=== PATIENT | female | born 1995 | race Two or more races ===

== ENCOUNTER 2024-01-19 15:06 | Emergency (ER) | payer MEDICAID, OTHER ==
[~2024-01-19] VITALS: Ht 152.4 cm; Wt 75.0 kg
[2024-01-19] MEDS ORDERED: ACET500T58 PO (16:47)
[2024-01-19] MEDS ORDERED: IBUP-1455 PO (16:47)
[2024-01-19] MEDS: KETOROLAC TROMETH 60MG/2ML VIAL IM ONE (17:45)
[2024-01-19 17:48] VITALS: BP 137/84; PULSE 72; RESP 15; TEMP 97.6; O2SAT 99
== END 2024-01-19 18:17 | disposition home or self-care (01) ==
LOC: ER 15:06
DX: S16.1XXA Strain of muscle, fascia and tendon at neck level, initial encounter (principal); S39.012A Strain of muscle, fascia and tendon of lower back, initial encounter; S46.912A Strain of unspecified muscle, fascia and tendon at shoulder and upper arm level, left arm, initial encounter; V89.2XXA Person injured in unspecified motor-vehicle accident, traffic, initial encounter; Y93.89 Activity, other specified; Y92.89 Other specified places as the place of occurrence of the external cause; Y99.8 Other external cause status
CPT/HCPCS: 72040; 72100; 73030; 96372; 99284; J1885

== ENCOUNTER 2024-05-29 14:47 | Emergency (ER) | payer MEDICAID ==
[~2024-05-29] VITALS: Ht 147.3 cm; Wt 56.3 kg
[~2024-05-29 14:47] MED LIST: ACET500T58 PO; IBUP-1455 PO
--- NOTE | 2024-05-29 16:14 | ED.PDOC ---
History of Present Illness HPI Comments HPI: Poor Historian. HPI: 28 year old female presents to the ED with chief complaint of flu-like illness. Patient reports that she has been experiencing a productive cough with associated sore throat since 2 days ago along with a subjective fever since 11am today. Patient relays that she did not take her temperature at home. Patient states she took XL-3 OTC cold medication with little relief noted. Patient denies any sick contacts. Patient denies any SOB, chest pain, nasal congestion, ear pain, dizziness, or N/V/D. Initial Vitals: Temp: 100F BP: 128/89 HR: 101 RR: 18 O2 Sat.: 98% Past Medical History: Denies Past Surgical History: Denies Social History: Denies smoking, ETOH, and drug use Medication: Denies Allergies: NKDA REVIEW OF SYSTEMS: CONSTITUTIONAL: Denies acute: diaphoresis, chills, HEAD: Denies acute: headache, photophobia Eyes: Denies acute: Double vision, vision loss, eye pain, eye discharge. EARS: Denies acute: tinnitus, hearing loss, ear discharge, ear pain, THROAT: Denies acute: swelling, difficulty swallowing , pain with swallowing, change in voice. NECK: Denies acute: neck pain, neck swelling, stiff neck. HEART: Denies acute : chest pain, palpitations, LUNGS: Denies acute: SOB, wheezing, hemoptysis ABDOMEN: Denies acute: abdominal pain, Nausea, Vomiting, diarrhea, melena , hematemesis, hematochezia SKIN: Denies acute: rash, redness, lesions, itchiness. EXTREMITIES: Denies acute: calf pain, numbness, tingling, weakness, denies pain in extremity. Denies acute: Low back pain. Neuro: Denies acute: focal neurological deficit, motor or sensory focal neurological deficit, tremors, seizure like activity, confusion, dizziness, change in mental status, loss of bowel or bladder function, cauda equina like symptoms. : Denies acute: dysuria, hematuria, flank pain, increase in urinary frequency. PSYCH: Denies acute: hallucination, suicidal ideation, homicidal ideation. FEMALE: Denies acute: abnormal vaginal bleeding, foul odor, unusual discharge. PHYSICAL EXAM: General: no acute distress, awake and alert. Head: normocephalic, atraumatic. Neck: supple, trachea is midline, no swelling. Throat: Normal phonation. Minimal erythema, no apparent exudates, no obstruction, no swelling. Eyes:, no erythema, no purulent discharge, no proptosis, no icterus. Heart: regular rate, regular rhythm, no significant murmur appreciated. Lungs: no apparent respiratory distress, Able to speak in full sentences. No wheezing, no rhonchi, no crackles. No stridors Clear to auscultation bilaterally. Abdomen: non tender to palpation, non distended, soft, no guarding, no rebound, + bowel sounds. Neuro: Awake, Alert, oriented to name, self, situation, follows commands GCS=15. Speech is normal. Skin: no petechia, no purpura, no cyanosis, non-pale, not jaundice. Lower extremities: --no - Pitting edema no deformity, no focal swelling, no calf TTP. Makes eye contact. moves all four extremities. Face: no apparent facial droop. No CVA tenderness to percussion bilaterally. Ambulating in the ED independently. Ears: Normal appearing TM b/l, Stroke: finger to nose cerebellar testing is intact. No pronator drift. Symmetrical lamp assembler muscle strength b/l PERRLA, EOM-I CN 2-12 are grossly intact, Pedal pulses are palpable. No nystagmus. No nuchal rigidity, Kernig's sign, Brudzinski's sign, no meningeal signs. Chief Complaint: Flu like Time Seen by MD: 16:11 Primary Care Provider: ? Reviewed Notes: Medications, Allergies Allergies: Coded Allergies: NO KNOWN ALLERGIES (Unverified , 01/19/24) Home Meds Active Scripts Oseltamivir Phosphate (Tamiflu) 75 Mg Cap, 75 MG PO BID for 5 Days, #10 CAP Prov:MECHELLE LEE DO 05/29/24 Ibuprofen Micronized (Ibuprofen) 800 Mg Tab, 800 MG PO Q8HP PRN, #20 TAB Prov:LAMINE TAYLOR PAC 01/19/24 Acetaminophen (Acetaminophen) 500 Mg Tab, 500 MG PO Q4HP PRN, #20 TAB Prov:LAMINE TAYLOR PAC 01/19/24 Information Source: Patient, Relative (Mother) Mode of Arrival: Ambulatory Was a procedure done? Was a procedure done?: No X-Ray, Labs, Meds, VS Vital Signs Date Time Temp Pulse Resp B/P (MAP) Pulse Ox O2 Delivery O2 Flow Rate FiO2 05/29/24 17:50 102.0 120 20 122/81 (95) 96 102.0 05/29/24 17:50 120 20 96 Room Air 05/29/24 15:22 18 98 Room Air* 0 21 05/29/24 15:10 100.0 101 18 128/89 (102) 98 Lab Test 05/29/24 16:23 05/29/24 16:03 Range/Units White Blood Count 5.6 4.4-10.8 10^3/uL Red Blood Count 4.72 4.0-5.20 10^6/uL Hemoglobin 14.5 12.2-16.2 g/dL Hematocrit 42.3 36.0-46.0 % Mean Corpuscular Volume 89.5 80.0-100.0 fL Mean Corpuscular Hemoglobin 30.8 28.0-32.0 pg Mean Corpuscular Hemoglobin Concent 34.4 32.0-36.0 g/dL Red Cell Distribution Width 12.9 11.8-14.3 % Platelet Count 220 140-450 10^3/uL Mean Platelet Volume 8.5 6.9-10.8 fL Neutrophils (%) (Auto) 70.5 37.0-80.0 % Lymphocytes (%) (Auto) 11.7 10.0-50.0 % Monocytes (%) (Auto) 16.7 H 0.0-12.0 % Eosinophils (%) (Auto) 0.6 0.0-7.0 % Basophils (%) (Auto) 0.5 0.0-2.0 % Neutrophils # (Auto) 4.0 1.6-8.6 10 ^3/uL Lymphocytes # (Auto) 0.7 0.4-5.4 10 ^3/uL Monocytes # (Auto) 0.9 0-1.3 10 ^3/uL Eosinophils # (Auto) 0 0-0.8 10 ^3/uL Basophils # (Auto) 0 0-0.2 10 ^3/uL Nucleated Red Blood Cells 0.0 % Sodium Level 139 136-145 mmol/L Potassium Level 3.2 L 3.5-5.1 mmol/L Chloride Level 105 98-107 mmol/L Carbon Dioxide Level 25 20-31 mmol/L Anion Gap 9 5-15 Blood Urea Nitrogen 8 L 9-23 mg/dL Creatinine 0.75 0.550-1.02 mg/dL Glomerular Filtration Rate Calc 113 >90 mL/min BUN/Creatinine Ratio 10.7 10.0-20.0 Serum Glucose 92 74-106 mg/dL Lactic Acid Level 0.8 0.4-2.0 mmol/L Calcium Level 9.6 8.7-10.4 mg/dL Monoscreen Negative Influenza Type A Antigen Negative Negative Influenza Type B Antigen Positive Negative SARS-CoV-2 Antigen (Rapid) Negative NEGATIVE Group A Streptococcus Rapid Positive Current Medications Medications (Trade) Dose Ordered Sig/Shadi Route Start Time Stop Time Status Last Admin Oseltamivir Phosphate (Tamiflu 75MG Capsule) 75 mg ONCE ONCE PO 05/29/24 16:45 05/29/24 16:51 DC 05/29/24 17:00 Penicillin G Benzathine (Bicillin L-A) 1,200,000 units ONCE ONCE IM 05/29/24 16:45 05/29/24 17:00 DC 05/29/24 17:06 Time of 1ST Reevaluation: 17:11 Reevaluation 1ST: Unchanged Patient Education/Counseling: Diagnosis, Treatment Family Education/Counseling: Diagnosis, Treatment Comments Patient presented with the above HPI.-- FLU-LIKE SYMPTOMS---workup was initiated. patient was found with the above mentioned diagnosis. the following medications were ordered: PENICILLIN, TAMIFLU the following tests were ordered: LABS, CXR Patient ED course and VS have been stabilized. Patient has been reassessed in the ED and remained in a stable condition. Pertinent incidental findings were discussed with the patient and/or family. Patient/family voices understanding and is agreeable with plan. Patient has been observed in the ED adequate length of time to insure improvement/stability. Escalation of care considered: Consideration of escalation to observation or admission Patient was DISCHARGED home in a stable condition. All the reports of any imaging studies that were ordered by myself were reviewed by myself. Departure 1 Departure Time of Disposition: 16:38 Impression: Primary Impression: Strep pharyngitis Additional Impression: Influenza B Disposition: 01 HOME / SELF CARE / HOMELESS Condition: Stable Additional Instructions: Additional discharge instructions: You MUST follow-up with your primary care/family doctor in 1 to 2 days. If you are unable to see your primary care/family doctor, please return to our emergency room for re-assessment and re-evaluation in 1 to 2 days. Return to the emergency room here in our facility or to the nearest ER [facility] if your symptoms change or worsen. CONSULTATIONS: you MUST Follow-up for consultation as soon as possible with: pulmonology in 1-2 days. You MUST call the consultants office yourself to make an appointment. You may need to arrange that through your insurance and/or your primary/family doctor. If you are unable to see the aerodynamic consultant in 1 to 2 days, you must return to our emergency room (or any other ER of your choice) for re-assessment and re- evaluation. Adequate fluid hydration. You are contagious. Wear a mask at all times. Exercise good hygiene. e-Prescriptions Oseltamivir Phosphate (Tamiflu) 75 Mg Cap 75 MG PO BID for 5 Days, #10 CAP Prov: MECHELLE LEE DO 05/29/24 Discharged With: Self Critical Care Note Critical Care Time?: No I personally scribed for MECHELLE LEE DO ([email or web address]) on 05/29/24 at 16:14. Electronically submitted by J Luis Rodríguez ([email or web address]). I personally scribed for MECHELLE LEE DO ([email or web address]) on 05/29/24 at 21:07. Electronically submitted by Isis Fournier ([email or web address]). MECHELLE LEE DO May 29, 2024 16:14
--- NOTE | 2024-05-29 16:15 | DVH ---
CHEST RADIOGRAPH Indication: fever, sore throat, cough Technique: Single frontal view of the chest was obtained Comparison: None FINDINGS: Lines and Tubes: None Lungs: No focal consolidation. Pleura: No effusion. No pneumothorax. Cardiomediastinal contours: Unremarkable Bones: No acute osseous abnormality. IMPRESSION: 1. No acute cardiopulmonary disease.
[2024-05-29 16:23] LABS: Rapid Strep A Screen-Throat Positive
[2024-05-29 16:32] LABS: COVID19 ANTIGEN SOFIA FIA NEGATIVE (NEGATIVE); Rapid Influenza A Negative (Negative)
[2024-05-29 16:33] LABS: Rapid Influenza B Positive (Negative)
[2024-05-29 16:38] LABS: Basophils # (auto) 0 10 ^3/uL (0-0.2); Basophils % (auto) 0.5 % (0.0-2.0); Eosinophils # (auto) 0 10 ^3/uL (0-0.8); Eosinophils % (auto) 0.6 % (0.0-7.0); Hematocrit 42.3 % (36.0-46.0); Hemoglobin 14.5 g/dL (12.2-16.2); Lymphocytes # (auto) 0.7 10 ^3/uL (0.4-5.4); Lymphocytes % (auto) 11.7 % (10.0-50.0); Mean Corpuscular Hemoglobin 30.8 pg (28.0-32.0); Mean Corpuscular Hgb Conc. 34.4 g/dL (32.0-36.0); Mean Corpuscular Volume 89.5 fL (80.0-100.0); Monocytes # (auto) 0.9 10 ^3/uL (0-1.3); Monocytes % (auto) 16.7 % (0.0-12.0); Neutrophils % (auto) 70.5 % (37.0-80.0); Platelet Count (auto) 220 10^3/uL (140-450); Red Blood Cells 4.72 10^6/uL (4.0-5.20); Red Cell Distribution Width 12.9 % (11.8-14.3); White Blood Cell 5.6 10^3/uL (4.4-10.8)
[2024-05-29] MEDS ORDERED: OSEL75CA5 PO (16:39)
[2024-05-29 16:59] LABS: Anion Gap 9 (5-15); Carbon Dioxide 25 mmol/L (20-31); Chloride 105 mmol/L (98-107); Sodium 139 mmol/L (136-145)
[2024-05-29 17:00] LABS: Calcium 9.6 mg/dL (8.7-10.4)
[2024-05-29] MEDS: OSELTAMIVIR 75 MG CAP PO ONE (17:00)
[2024-05-29 17:05] LABS: BUN/Creatinine Ratio 10.7 (10.0-20.0); Blood Urea Nitrogen 8 mg/dL (9-23); Glucose 92 mg/dL (74-106); Potassium 3.2 mmol/L (3.5-5.1)
[2024-05-29] MEDS: PENICILLIN G BENZ 1,200,000 UNITS/2 ML SYRG IM ONE (17:06)
[2024-05-29 17:50] VITALS: BP 122/81; PULSE 120; RESP 20; TEMP 102; O2SAT 96
== END 2024-05-29 18:01 | disposition home or self-care (01) ==
LOC: ER 14:47
DX: J02.0 Streptococcal pharyngitis (principal); J10.1 Influenza due to other identified influenza virus with other respiratory manifestations; R05.9 Cough, unspecified; R50.9 Fever, unspecified; Z20.822 Contact with and (suspected) exposure to COVID-19
CPT/HCPCS: 36415; 71045; 80048; 83605; 85025; 86308; 87426; 87804; 87880; 96372; 99284; J0561

== ENCOUNTER 2024-07-30 17:36 | Emergency (ER) | payer MEDICAID ==
[~2024-07-30] VITALS: Ht 152.4 cm; Wt 54.6 kg
[~2024-07-30 17:36] MED LIST changes: +OSEL75CA5 PO
[2024-07-30 18:29] VITALS: BP 136/94; PULSE 83; RESP 17; TEMP 98; O2SAT 98
[2024-07-30] MEDS ORDERED: ACET500T58 PO (19:04)
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
== END 2024-07-30 19:16 | disposition home or self-care (01) ==
LOC: ER 17:42
DX: S16.1XXA Strain of muscle, fascia and tendon at neck level, initial encounter (principal); S39.012A Strain of muscle, fascia and tendon of lower back, initial encounter; V89.2XXA Person injured in unspecified motor-vehicle accident, traffic, initial encounter; Y93.89 Activity, other specified; Y92.410 Unspecified street and highway as the place of occurrence of the external cause; Y99.8 Other external cause status